=== PATIENT | male | born 1990 | race Caucasian/White ===

== ENCOUNTER 2021-09-16 07:10 | Emergency (ER) | payer OTHER ==
[~2021-09-16] VITALS: Ht 195.6 cm; Wt 145.2 kg
[2021-09-16] MEDS ORDERED: HYDROCODON-ACE1 EAC7 PO (08:37)
[2021-09-16 08:56] VITALS: BP 149/90
--- NOTE | 2021-09-17 11:25 | EKG ---
[place] [address] ELECTROCARDIOGRAM REPORT Name: RADHAJOHNSTONAM Room: [facility]#: [id number] Admission: 09/16/21 Attend Phys: Discharge: 09/16/21 Date of : 89 Date of Service: 09/15/211921 Report #: [id number] THIS REPORT FOR: //name// [facility] ED Test Date: 2021-09-15 Test Time: 19:22:20 Pat Name: RADHA ROD Department: Room: Gender: Body Designer: [place] : 1990 Requested By: Darrell Del Real Order Number: [id number] MD: Edwar Johnson Measurements Intervals [place] Rate: 78 P: 66 AL: 162 QRS: 30 QRSD: 100 T: 35 QT: 414 QTc: 472 Interpretive Statements Sinus rhythm Probable left atrial enlargement Borderline repolarization abnormality No previous ECG available for comparison Electronically Signed On 09-17-2021 11:25:37 [employer] by Edwar Johnson [email or web address] <ELECTRONICALLY SIGNED> By: Edwar Johnson MD, [facility] 09/17/21 1125 21 21 Edwar Johnson MD, FAC /EPI
== END 2021-09-16 08:56 | disposition home or self-care (01) ==
LOC: M.ERS 07:10
DX: S22.080A Wedge compression fracture of T11-T12 vertebra, initial encounter for closed fracture (principal); S70.01XA Contusion of right hip, initial encounter; F90.9 Attention-deficit hyperactivity disorder, unspecified type; W01.0XXA Fall on same level from slipping, tripping and stumbling without subsequent striking against object, initial encounter; Y93.89 Activity, other specified; Y92.89 Other specified places as the place of occurrence of the external cause; Y99.8 Other external cause status